=== PATIENT | female | born 2000 | race American Indian/Alaskan Native ===

== ENCOUNTER 2021-11-11 03:00 | Emergency (ER) | payer OTHER ==
[2021-11-11 04:05] LABS: Bilirubin,Urine NEG (Negative); Blood,Urine NEG (Negative); Color,Urine Yellow (Yellow); Mucus,Urine 3+ /HPF; Protein,Urine <15 mg/dL mg/dL (Negative)
[2021-11-11 04:07] LABS: HCG Qualitative,Urine Negative (Negative)
--- NOTE | 2021-11-11 07:01 | Emergency Department Report ---
<MICHELLE CISNEROS - Last Filed: 11/11/21 06:59> ED Female HPI - General Chief complaint: Urogenital-Female Stated complaint: VAGINAL PAIN Source: patient Mode of arrival: Ambulatory Limitations: No Limitations - History of Present Illness Initial comments: Patient is a nulliparous 21-year-old -Luxembourger female with a history of morbid obesity who presents to the ED with complaint of acute onset persistent vaginal pain with vaginal discharge after having unprotected sexual intercourse 2 days ago. Patient states that the pain has been constant and persistent and especially worse with movement. Patient states that this was an unprotected sexual intercourse with a new sexual partner. Patient denies vaginal bleeding, dysuria, urinary frequency and urgency, fever, chills, nausea and vomiting, low back pain, chest pain or shortness of breath. MD Complaint: pelvic pain, possible STD, other (Vaginal pain) -: Sudden, days(s) (2) Location: other (Vaginal) Radiation: non-radiating Severity: severe Severity scale (0 -10): 7 Quality: sharp, aching Consistency: constant Improves with: none Worsens with: movement Are you Now?: No Associated Symptoms: denies other symptoms. denies: vaginal discharge, vaginal bleeding, abdominal pain, nausea/vomiting, fever/chills, headaches, dysuria, hematuria, shortness of breath, syncope, weakness - Related Data Sexually active: Yes : 0 Para: 0 A: 0 Previous Rx's Medication Instructions Recorded Last Taken Type DOXYCYCLINE Hyclate [Vibramycin 100 mg PO Q12HR 10 Days #20 capsule 11/11/21 Unknown Rx CAP] Allergies Allergy/AdvReac Type Severity Reaction Status Date / Time No Known Allergies Allergy Verified 11/11/21 04:22 ED Past Medical Hx - Medications Home Medications: Home Medications Medication Instructions Recorded Confirmed Last Taken Type DOXYCYCLINE Hyclate [Vibramycin 100 mg PO Q12HR 10 Days #20 capsule 11/11/21 Unknown Rx CAP] ED Physical Exam - General Limitations: No Limitations ED Disposition Clinical Impression: Vaginitis, Concern about STD in female without diagnosis Disposition: 01 HOME / SELF CARE / HOMELESS Condition: Stable Instructions: Vaginitis, [id number] Additional Instructions: Urinalysis no concerns for infection. Your wet prep is concerning for possible gonorrhea. We are treating you for gonorrhea and chlamydia prophylactically. You need to follow-up at the [facility] for full STD testing. Refrain from intercourse for the next 2 weeks and inform your partner that he needs to be tested and treated. I highly recommend condom use. Prescriptions: DOXYCYCLINE Hyclate [Vibramycin CAP] 100 mg PO Q12HR 10 Days #20 capsule Referrals: [facility] [Outside] - 3-5 Days Forms: Work/School Release Form(ED) <NICHELLE COCHRAN - Last Filed: 11/11/21 10:50> ED Female HPI - History of Present Illness Initial comments: Patient is a nulliparous 21-year-old -Luxembourger female with a history of morbid obesity who presents to the ED with complaint of acute onset persistent vaginal pain with vaginal discharge after having unprotected sexual intercourse 2 days ago. Patient states that the pain has been constant and persistent and especially worse with movement. Patient states that this was an unprotected sexual intercourse with a new sexual partner. Patient denies vaginal bleeding, dysuria, urinary frequency and urgency, fever, chills, nausea and vomiting, low back pain, chest pain or shortness of breath. ED Review of Systems ROS: Stated complaint: VAGINAL PAIN Other details as noted in HPI ED Physical Exam - General General appearance: alert - Head Head exam: Present: atraumatic, normocephalic - Eye Eye exam: Present: normal appearance - ENT ENT exam: Present: mucous membranes moist - Neck Neck exam: Present: normal inspection, full ROM - Respiratory Respiratory exam: Present: normal lung sounds bilaterally. Absent: respiratory distress - Cardiovascular Cardiovascular Exam: Present: regular rate - GI/Abdominal GI/Abdominal exam: Present: soft. Absent: distended, tenderness - External exam: Absent: erythema, swelling, lesions, bleeding Speculum exam: Present: vaginal discharge - Extremities Exam Extremities exam: Present: normal inspection, full ROM - Back Exam Back exam: Present: normal inspection, full ROM - Neurological Exam Neurological exam: Present: alert, oriented X3, normal gait - Psychiatric Psychiatric exam: Present: normal affect, normal mood - Skin Skin exam: Present: warm, dry, intact, normal color. Absent: rash ED Course Vital Signs 11/11/21 03:17 Temperature 97.5 F L Pulse Rate 85 Respiratory 18 Rate Blood Pressure 172/110 O2 Sat by Pulse 96 Oximetry ED Medical Decision Making - Medical Decision Making Patient is a nulliparous 21-year-old -Luxembourger female with a history of morbid obesity who presents to the ED with complaint of acute onset persistent vaginal pain with vaginal discharge after having unprotected sexual intercourse 2 days ago. Patient states that the pain has been constant and persistent and especially worse with movement. Patient states that this was an unprotected sexual intercourse with a new sexual partner. Patient denies vaginal bleeding, dysuria, urinary frequency and urgency, fever, chills, nausea and vomiting, low back pain, chest pain or shortness of breath. Wet prep came back with PN cells. Negative for trichomonas negative for BV. I discussed the patient that she possibly could have gonorrhea. Patient be given a Rocephin 1 g shot and be discharged on doxycycline 100 mg p.o. twice daily for 10 days dispense 20. I informed patient that she needs to notify her partner they need to go get tested and treated. Discussed with patient that she needs to use condoms. Critical care attestation.: If time is entered above; I have spent that time in minutes in the direct care of this critically ill patient, excluding procedure time. ED Disposition Is pt being admited?: No Does the pt Need Aspirin: No Time of Disposition: 10:45
[2021-11-11] MEDS ORDERED: LIDOCAINE-MPF (1%) 10 MG/1 ML VIAL 5 ML INFILTRATI ONE (10:37)
[2021-11-11 11:35] VITALS: BP 126/80
== END 2021-11-11 11:31 | disposition home or self-care (01) ==
LOC: ED 03:00
DX: N76.0 Acute vaginitis (principal); Z20.2 Contact with and (suspected) exposure to infections with a predominantly sexual mode of transmission
CPT/HCPCS: 81001; 81025; 87210; 96372; 99284; J0696; J3490